=== PATIENT | female | born 1955 | race Caucasian/White ===

== ENCOUNTER 2022-12-10 10:12 | Day surgery (SDC) | payer BC ==
[~2022-12-10 10:12] MED LIST: FULVESTRANT 250 MG/5 ML SYRINGE IM ONE
[2022-12-10 17:32] VITALS: BP 123/68; PULSE 87; RESP 20; TEMP 98
== END 2022-12-10 11:05 | disposition home or self-care (01) ==
LOC: JONCCHEMO 10:12
PROVIDERS: ATTEND Internal Medicine Hematology & Oncology
DX: Z51.11 Encounter for antineoplastic chemotherapy (principal); C50.919 Malignant neoplasm of unspecified site of unspecified female breast; C78.00 Secondary malignant neoplasm of unspecified lung; C79.9 Secondary malignant neoplasm of unspecified site
CPT/HCPCS: 96402; J9395

== ENCOUNTER 2022-12-24 10:24 | Day surgery (SDC) | payer BC ==
[2022-12-24 11:27] VITALS: BP 124/71; PULSE 92; RESP 18; TEMP 98.1
== END 2022-12-24 11:50 | disposition home or self-care (01) ==
LOC: JONCCHEMO 10:24
PROVIDERS: ATTEND Internal Medicine Hematology & Oncology
DX: Z51.11 Encounter for antineoplastic chemotherapy (principal); C50.919 Malignant neoplasm of unspecified site of unspecified female breast; C78.00 Secondary malignant neoplasm of unspecified lung; C79.9 Secondary malignant neoplasm of unspecified site
CPT/HCPCS: 96402; J9395

== ENCOUNTER 2023-01-07 10:03 | Day surgery (SDC) | payer BC ==
[2023-01-07 15:57] VITALS: BP 122/62; PULSE 82; RESP 20; TEMP 97.4
== END 2023-01-07 10:30 | disposition home or self-care (01) ==
LOC: JONCCHEMO 10:03
PROVIDERS: ATTEND Internal Medicine Hematology & Oncology
DX: Z51.11 Encounter for antineoplastic chemotherapy (principal); C50.919 Malignant neoplasm of unspecified site of unspecified female breast; C79.9 Secondary malignant neoplasm of unspecified site
CPT/HCPCS: 96402; J9395

== ENCOUNTER 2023-02-04 10:11 | Day surgery (SDC) | payer BC ==
[2023-02-04 16:47] VITALS: BP 115/63; PULSE 84; RESP 20; TEMP 97.4
== END 2023-02-04 11:00 | disposition home or self-care (01) ==
LOC: JONCCHEMO 10:11 → J7W 10:13 → JONCCHEMO 11:00
PROVIDERS: ATTEND Internal Medicine Hematology & Oncology
DX: Z51.11 Encounter for antineoplastic chemotherapy (principal); C50.912 Malignant neoplasm of unspecified site of left female breast
CPT/HCPCS: 96402; J9395

== ENCOUNTER 2023-03-11 09:51 | Day surgery (SDC) | payer BC ==
[2023-03-11] MEDS ORDERED: FULVESTRANT 250 MG/5 ML SYRINGE IM ONE (10:00)
[2023-03-11 19:14] VITALS: BP 105/57; PULSE 89; RESP 20; TEMP 97.8
== END 2023-03-11 10:40 | disposition home or self-care (01) ==
LOC: JONCCHEMO 09:51 → J7W 09:53 → JONCCHEMO 10:40
PROVIDERS: ATTEND Internal Medicine Hematology & Oncology
DX: Z51.11 Encounter for antineoplastic chemotherapy (principal); C50.912 Malignant neoplasm of unspecified site of left female breast
CPT/HCPCS: J9395

== ENCOUNTER 2023-04-08 10:19 | Day surgery (SDC) | payer BC ==
[2023-04-08 13:04] VITALS: BP 112/40; PULSE 100; RESP 18; TEMP 97.8
== END 2023-04-08 11:15 | disposition home or self-care (01) ==
LOC: JONCCHEMO 10:19 → J7W 10:21 → JONCCHEMO 11:15
PROVIDERS: ATTEND Internal Medicine Hematology & Oncology
DX: Z51.11 Encounter for antineoplastic chemotherapy (principal); C50.912 Malignant neoplasm of unspecified site of left female breast; C78.00 Secondary malignant neoplasm of unspecified lung; C79.89 Secondary malignant neoplasm of other specified sites
CPT/HCPCS: 96402; J9395

== ENCOUNTER 2023-05-06 08:22 | Day surgery (SDC) | payer BC ==
[2023-05-06] MEDS ORDERED: FULVESTRANT 250 MG/5 ML SYRINGE IM ONE (10:00)
[2023-05-06 14:44] VITALS: BP 117/73; PULSE 83; RESP 18; TEMP 98.3
== END 2023-05-06 10:00 | disposition home or self-care (01) ==
LOC: JONCCHEMO 08:22 → J7W 08:23 → JONCCHEMO 10:00
PROVIDERS: ATTEND Internal Medicine Hematology & Oncology
DX: Z51.11 Encounter for antineoplastic chemotherapy (principal); C50.919 Malignant neoplasm of unspecified site of unspecified female breast; C79.9 Secondary malignant neoplasm of unspecified site
CPT/HCPCS: 96402; J9395

== ENCOUNTER 2023-07-01 10:11 | Day surgery (SDC) | payer BC ==
[2023-07-01] MEDS ORDERED: INSULIN (NOVOLOG) ASPART 100 UNITS/ML 10ML VIAL ONE (11:17)
[2023-07-01 18:28] VITALS: BP 121/61; PULSE 87; RESP 18; TEMP 98
== END 2023-07-01 10:45 | disposition home or self-care (01) ==
LOC: JONCCHEMO 10:11 → J7W 10:14 → JONCCHEMO 10:45
PROVIDERS: ATTEND Internal Medicine Hematology & Oncology
DX: Z51.11 Encounter for antineoplastic chemotherapy (principal); C50.919 Malignant neoplasm of unspecified site of unspecified female breast; C79.9 Secondary malignant neoplasm of unspecified site
CPT/HCPCS: 96402; J9395

== ENCOUNTER 2023-07-29 10:17 | Day surgery (SDC) | payer BC ==
[2023-07-29 16:06] VITALS: BP 109/62; PULSE 81; RESP 18; TEMP 97.5
== END 2023-07-29 10:50 | disposition home or self-care (01) ==
LOC: J7W 10:17 → JONCCHEMO 10:17
PROVIDERS: ATTEND Internal Medicine Hematology & Oncology
DX: Z51.11 Encounter for antineoplastic chemotherapy (principal); C50.912 Malignant neoplasm of unspecified site of left female breast
CPT/HCPCS: 96402; J9395

== ENCOUNTER 2023-08-26 10:12 | Day surgery (SDC) | payer BC ==
[2023-08-26 14:22] VITALS: BP 112/62; PULSE 93; RESP 18; TEMP 98.1
== END 2023-08-26 11:00 | disposition home or self-care (01) ==
LOC: JONCCHEMO 10:12 → J7W 10:13 → JONCCHEMO 11:00
PROVIDERS: ATTEND Internal Medicine Hematology & Oncology
DX: Z51.11 Encounter for antineoplastic chemotherapy (principal); C50.912 Malignant neoplasm of unspecified site of left female breast
CPT/HCPCS: 96402; J9395

== ENCOUNTER 2023-09-23 09:56 | Day surgery (SDC) | payer BC ==
[2023-09-23] MEDS ORDERED: FULVESTRANT 250 MG/5 ML SYRINGE IM ONE (10:00)
[2023-09-23 10:37] LABS: BASO % 1.1 % (0-2.0); EOS % 4.1 % (0-4.5); LYMPH % 33.2 % (8-40); MCH 32.3 pg (25.7-33.7); MCHC 33.4 g/dl (32.0-36.0); MEAN CELL VOLUME 96.7 fl (80-96); MEAN PLT VOLUME 7.6 fl (7.5-11.1); MONO % 9.4 % (3.8-10.2); NEUT % 52.2 % (42.8-82.8); PLATELET COUNT 299 10^3/uL (134-434); RBC 4.34 M/mm3 (3.60-5.2); RDW 13.3 % (11.6-15.6); WHITE BLOOD COUNT 5.5 K/mm3 (4.0-10.0)
[2023-09-23 11:17] LABS: POTASSIUM 5.7 mmol/L (3.5-5.1)
[2023-09-23 11:19] LABS: CALCIUM 9.8 mg/dL (8.5-10.1); MAGNESIUM 1.6 mg/dL (1.8-2.4)
[2023-09-23 11:22] LABS: CREATININE 0.7 mg/dL (0.55-1.3)
[2023-09-23 11:23] LABS: BILIRUBIN,TOTAL 0.3 mg/dL (0.2-1)
[2023-09-23 11:24] LABS: TOT PROT 7.6 g/dl (6.4-8.2)
[2023-09-23 17:15] VITALS: BP 118/66; PULSE 89; RESP 20; TEMP 98.1
== END 2023-09-23 10:55 | disposition home or self-care (01) ==
LOC: JONCCHEMO 09:56 → J7W 09:57 → JONCCHEMO 10:55
PROVIDERS: ATTEND Internal Medicine Hematology & Oncology
DX: Z51.11 Encounter for antineoplastic chemotherapy (principal); C50.912 Malignant neoplasm of unspecified site of left female breast
CPT/HCPCS: 36415; 80053; 82306; 82378; 83735; 85025; 86300; 96402; J9395

== ENCOUNTER 2023-10-21 10:22 | Day surgery (SDC) | payer BC ==
[2023-10-21] MEDS: FULVESTRANT 250 MG/5 ML SYRINGE IM ONE (11:16)
[2023-10-21] MEDS: LIDOCAINE HCL 1%, 10 MG/ML (20ML VIAL) ID ONE (11:16)
[2023-10-21 15:35] VITALS: BP 106/54; PULSE 95; RESP 18; TEMP 98.1
== END 2023-10-21 11:35 | disposition home or self-care (01) ==
LOC: JONCCHEMO 10:22 → J7W 10:24 → JONCCHEMO 11:35
PROVIDERS: ATTEND Internal Medicine Hematology & Oncology
DX: Z51.11 Encounter for antineoplastic chemotherapy (principal); C50.912 Malignant neoplasm of unspecified site of left female breast
CPT/HCPCS: 96402; J9395

== ENCOUNTER 2023-11-18 10:23 | Day surgery (SDC) | payer BC ==
[2023-11-18 10:38] VITALS: BP 120/59; PULSE 91; RESP 18; TEMP 97.7
[2023-11-18] MEDS: LIDOCAINE HCL 1%, 10 MG/ML (20ML VIAL) ID ONE (10:53)
[2023-11-18] MEDS: FULVESTRANT 250 MG/5 ML SYRINGE IM ONE (10:54)
== END 2023-11-18 11:15 | disposition home or self-care (01) ==
LOC: JONCCHEMO 10:23 → J7W 10:28 → JONCCHEMO 11:15
PROVIDERS: ATTEND Internal Medicine Hematology & Oncology
DX: Z51.11 Encounter for antineoplastic chemotherapy (principal); C50.919 Malignant neoplasm of unspecified site of unspecified female breast; Z17.0 Estrogen receptor positive status [ER+]
CPT/HCPCS: 96402; J9395

== ENCOUNTER 2023-12-16 10:24 | Day surgery (SDC) | payer BC ==
[2023-12-16] MEDS: FULVESTRANT 250 MG/5 ML SYRINGE IM ONE (10:48)
[2023-12-16] MEDS: LIDOCAINE HCL 1%, 10 MG/ML (20ML VIAL) ID ONE (10:49)
[2023-12-16 15:49] VITALS: BP 126/80; PULSE 88; RESP 20; TEMP 97.7
== END 2023-12-16 11:00 | disposition home or self-care (01) ==
LOC: JONCCHEMO 10:24 → J7W 10:25 → JONCCHEMO 11:00
PROVIDERS: ATTEND Internal Medicine Hematology & Oncology
DX: Z51.11 Encounter for antineoplastic chemotherapy (principal); C50.919 Malignant neoplasm of unspecified site of unspecified female breast
CPT/HCPCS: 96402; J9395

== ENCOUNTER 2024-01-13 10:55 | Day surgery (SDC) | payer BC ==
[2024-01-13] MEDS: FULVESTRANT 250 MG/5 ML SYRINGE IM ONE (11:15)
[2024-01-13 12:36] VITALS: BP 100/64; PULSE 68; RESP 20; TEMP 98.2
== END 2024-01-13 11:35 | disposition home or self-care (01) ==
LOC: JONCCHEMO 10:55 → J7W 10:55 → JONCCHEMO 11:35
PROVIDERS: ATTEND Internal Medicine Hematology & Oncology
DX: Z51.11 Encounter for antineoplastic chemotherapy (principal); C50.919 Malignant neoplasm of unspecified site of unspecified female breast
CPT/HCPCS: 96401; J9395

== ENCOUNTER 2024-02-10 10:50 | Day surgery (SDC) | payer BC ==
[2024-02-10] MEDS: FULVESTRANT 250 MG/5 ML SYRINGE IM ONE (10:57)
[2024-02-10 12:04] VITALS: BP 109/57; PULSE 95; RESP 18; TEMP 97.7
== END 2024-02-10 11:20 | disposition home or self-care (01) ==
LOC: JONCCHEMO 10:50 → J7W 10:51 → JONCCHEMO 11:20
PROVIDERS: ATTEND Internal Medicine Hematology & Oncology
DX: Z51.11 Encounter for antineoplastic chemotherapy (principal); C50.919 Malignant neoplasm of unspecified site of unspecified female breast
CPT/HCPCS: 96401; J9395

== ENCOUNTER 2024-03-09 10:27 | Day surgery (SDC) | payer BC ==
[2024-03-09] MEDS: FULVESTRANT 250 MG/5 ML SYRINGE IM ONE (10:39)
[2024-03-09 17:52] VITALS: BP 125/66; PULSE 81; RESP 16; TEMP 97.1
== END 2024-03-09 11:00 | disposition home or self-care (01) ==
LOC: JONCCHEMO 10:27 → J7W 10:27 → JONCCHEMO 11:00
PROVIDERS: ATTEND Internal Medicine Hematology & Oncology
DX: Z51.11 Encounter for antineoplastic chemotherapy (principal); C50.919 Malignant neoplasm of unspecified site of unspecified female breast
CPT/HCPCS: 96402; J9395

== ENCOUNTER 2024-04-06 10:41 | Day surgery (SDC) | payer BC ==
[2024-04-06] MEDS: FULVESTRANT 250 MG/5 ML SYRINGE IM ONE (10:54)
[2024-04-06 13:01] VITALS: BP 115/56; PULSE 82; RESP 18; TEMP 97.6
== END 2024-04-06 11:05 | disposition home or self-care (01) ==
LOC: JONCCHEMO 10:41 → J7W 10:42 → JONCCHEMO 11:05
PROVIDERS: ATTEND Internal Medicine Hematology & Oncology
DX: Z51.11 Encounter for antineoplastic chemotherapy (principal); C50.912 Malignant neoplasm of unspecified site of left female breast
CPT/HCPCS: 96402; J9395

== ENCOUNTER 2024-05-04 10:22 | Day surgery (SDC) | payer BC ==
[2024-05-04] MEDS: FULVESTRANT 250 MG/5 ML SYRINGE IM ONE (10:37)
[2024-05-04 18:20] VITALS: BP 106/60; PULSE 84; RESP 18; TEMP 98.5
== END 2024-05-04 11:00 | disposition home or self-care (01) ==
LOC: JONCCHEMO 10:22 → J7W 10:22 → JONCCHEMO 11:00
PROVIDERS: ATTEND Internal Medicine Hematology & Oncology
DX: Z51.11 Encounter for antineoplastic chemotherapy (principal); C50.919 Malignant neoplasm of unspecified site of unspecified female breast
CPT/HCPCS: 96402; J9395

== ENCOUNTER 2024-06-01 10:31 | Day surgery (SDC) | payer BC ==
[2024-06-01] MEDS: FULVESTRANT 250 MG/5 ML SYRINGE IM ONE (10:55)
[2024-06-01 17:52] VITALS: BP 98/52; PULSE 85; RESP 16; TEMP 98.1
== END 2024-06-01 11:15 | disposition home or self-care (01) ==
LOC: JONCCHEMO 10:31 → J7W 10:32 → JONCCHEMO 11:15
PROVIDERS: ATTEND Internal Medicine Hematology & Oncology
DX: Z51.11 Encounter for antineoplastic chemotherapy (principal); C50.919 Malignant neoplasm of unspecified site of unspecified female breast
CPT/HCPCS: 96402; J9395

== ENCOUNTER 2024-07-06 10:47 | Day surgery (SDC) | payer BC ==
[2024-07-06] MEDS: FULVESTRANT 250 MG/5 ML SYRINGE IM ONE (10:49)
[2024-07-06 11:17] LABS: BASO % 0.9 % (0-2.0); EOS % 4.7 % (0-4.5); HEMOGLOBIN 14.1 GM/dL (10.7-15.3); MCH 32.9 pg (25.7-33.7); MCHC 33.6 g/dl (32.0-36.0); MEAN CELL VOLUME 97.9 fl (80-96); MEAN PLT VOLUME 7.9 fl (7.5-11.1); MONO % 9.2 % (3.8-10.2); NEUT % 55.2 % (42.8-82.8); PLATELET COUNT 251 10^3/uL (134-434); RBC 4.29 M/mm3 (3.60-5.2); RDW 13.4 % (11.6-15.6); WHITE BLOOD COUNT 4.7 K/mm3 (4.0-10.0)
[2024-07-06 11:32] LABS: CHLORIDE 106 mmol/L (98-107); POTASSIUM 5.2 mmol/L (3.5-5.1); SODIUM 137 mmol/L (136-145)
[2024-07-06 11:34] LABS: ALBUMIN 3.9 g/dl (3.4-5.0); ANION GAP 4 mmol/L (4-13); BLOOD UREA NITROGEN 13.9 mg/dL (7-18); CALCIUM 9.8 mg/dL (8.5-10.1); CO2 27 mmol/L (21-32)
[2024-07-06 11:35] LABS: GLUCOSE,RANDOM 105 mg/dL (74-106)
[2024-07-06 11:38] LABS: CREATININE 0.6 mg/dL (0.55-1.3); SGOT/AST 75 U/L (15-37); SGPT/ALT 103 U/L (13-61)
[2024-07-06 11:39] LABS: BILIRUBIN,TOTAL 0.5 mg/dL (0.2-1)
[2024-07-06 11:40] LABS: ALK PHOS 180 U/L (45-117)
[2024-07-06 16:39] VITALS: BP 118/61; PULSE 92; RESP 20; TEMP 98.1
== END 2024-07-06 11:15 | disposition home or self-care (01) ==
LOC: JONCCHEMO 10:47 → J7W 10:48 → JONCCHEMO 11:15
PROVIDERS: ATTEND Internal Medicine Hematology & Oncology
DX: Z51.11 Encounter for antineoplastic chemotherapy (principal); C50.919 Malignant neoplasm of unspecified site of unspecified female breast
CPT/HCPCS: 36415; 80053; 82306; 82378; 83735; 85025; 86300; 96402; J9395

== ENCOUNTER 2024-08-03 10:04 | Day surgery (SDC) | payer BC ==
[2024-08-03] MEDS: FULVESTRANT 250 MG/5 ML SYRINGE IM ONE (09:51)
[2024-08-03 16:38] VITALS: BP 100/52; PULSE 88; RESP 20; TEMP 98.2
== END 2024-08-03 10:30 | disposition home or self-care (01) ==
LOC: JONCCHEMO 10:04 → J7W 10:05 → JONCCHEMO 10:30
PROVIDERS: ATTEND Internal Medicine Hematology & Oncology
DX: Z51.11 Encounter for antineoplastic chemotherapy (principal); C50.919 Malignant neoplasm of unspecified site of unspecified female breast; C79.9 Secondary malignant neoplasm of unspecified site
CPT/HCPCS: 96402; J9395

== ENCOUNTER 2024-08-31 10:18 | Day surgery (SDC) | payer BC ==
[2024-08-31] MEDS: FULVESTRANT 250 MG/5 ML SYRINGE IM ONE (10:01)
[2024-08-31 16:46] VITALS: BP 122/58; PULSE 94; RESP 20; TEMP 98.2
== END 2024-08-31 10:30 | disposition home or self-care (01) ==
LOC: JONCCHEMO 10:18 → J7W 10:18 → JONCCHEMO 10:30
PROVIDERS: ATTEND Internal Medicine Hematology & Oncology
DX: Z51.11 Encounter for antineoplastic chemotherapy (principal); C50.919 Malignant neoplasm of unspecified site of unspecified female breast; C79.9 Secondary malignant neoplasm of unspecified site
CPT/HCPCS: 96401; J9395

== ENCOUNTER 2024-09-28 09:59 | Day surgery (SDC) | payer BC ==
[2024-09-28] MEDS: FULVESTRANT 250 MG/5 ML SYRINGE IM ONE (10:14)
[2024-09-28 12:52] VITALS: BP 127/63; PULSE 87; RESP 16; TEMP 98.7
== END 2024-09-28 10:35 | disposition home or self-care (01) ==
LOC: JONCCHEMO 09:59
PROVIDERS: ATTEND Internal Medicine Hematology & Oncology
DX: Z51.11 Encounter for antineoplastic chemotherapy (principal); C50.919 Malignant neoplasm of unspecified site of unspecified female breast; Z17.0 Estrogen receptor positive status [ER+]
CPT/HCPCS: 96402; J9395